=== PATIENT | male | born 1955 | race Hispanic/Latino ===

== ENCOUNTER 2018-03-13 19:28 | Inpatient (IN) | payer OTHER ==
[2018-03-13 20:14] LABS: BASO # 0.1 K/uL (0.0-0.2); BASO % 1.4 % (0.0-2.0); EOS # 0.5 K/uL (0.0-0.7); EOS % 6.8 % (0.0-4.0); HEMOGLOBIN 15.1 g/dL (12.0-18.0); LYMPH # 2.4 K/uL (1.0-4.3); LYMPH % 31.2 % (20.0-40.0); MEAN CELL VOLUME 89.2 fl (80.0-94.0); MEAN CORPUSCULAR HEMOGLOBIN 30.3 pg (27.0-31.0); MEAN PLATELET VOLUME 7.9 fl (7.2-11.7); MONO # 0.8 K/uL (0.0-0.8); MONO % 10.9 % (0.0-10.0); NEUT # 3.9 K/uL (1.8-7.0); NEUT % 49.7 % (50.0-75.0); RBC 4.97 Mil/uL (4.40-5.90); RED CELL DISTRIBUTION WIDTH 13.5 % (11.5-14.5); WHITE BLOOD COUNT 7.8 K/uL (4.8-10.8)
[2018-03-13 20:20] LABS: PARTIAL THROMBOPLASTIN TIME 29.5 Seconds (25.6-37.1); PROTHROMBIN TIME 11.4 Seconds (9.8-13.1)
--- NOTE | 2018-03-13 20:20 | ED PDOC ---
HPI: Altered Mental Status Time Seen by Provider: 03/13/18 19:46 Chief Complaint (Nursing): Dizziness/Lightheaded Chief Complaint (Provider): Trouble Reading History Per: Patient History/Exam Limitations: None Onset/Duration Of Symptoms: Hrs (one hour ago) Additional Complaint(s): 62 year old with a past medical history of dyslipidemia presents to the ED complaining he had trouble reading one hour ago prior to arrival. States he went to the store to purchase cat litter and had difficulty reading the word eliminator even though he knew it said eliminator. Subsequently, he felt weak and nauseous. He reported the symptoms to his as well and felt better at home but states he was texting incorrectly. Patient is oriented to person, place , and time currently. His speech is clear and fluent. Denies trouble walking, speaking, or facial droop. PMD: Dr. Gonzales NIHSS Stroke Scale - Date/Time Evaluation Performed Date Performed: 03/13/18 Time Performed: 19:45 When Was NIHSS Performed: Baseline - How Severe is the Stroke Level of Consciousness: 0=Alert LOC to Questions: 0=Both comments correct LOC to commands: 0=Obeys both correctly Best Gaze: 0=Normal Visual: 0=No visual loss Facial: 0=Normal Motor Arm - Left: 0=No drift Motor Arm - Right: 0=No drift Motor Leg - Left: 0=No drift Motor Leg - Right: 0=No drift Limb Ataxia: 0=Absent Sensory: 0=Normal Best Language: 0=No aphasia Dysarthia: 0=Normal articulation Extinction & Inattention (Neglect): 0=Normal, no object Score: 0 Past Medical History Reviewed: Historical Data, Nursing Documentation, Vital Signs Vital Signs: Last Vital Signs Temp 97.8 F 03/13/18 19:32 Pulse 82 03/13/18 19:32 Resp 16 03/13/18 19:32 BP 146/80 03/13/18 19:32 Pulse Ox 95 03/13/18 19:32 - Medical History PMH: Hypercholesterolemia - Surgical History Surgical History: Tonsillectomy - Family History Family History: States: No Known Family Hx - Social History Current smoker - smoking cessation education provided: No Alcohol: None Drugs: Denies - Home Medications Home Medications: Ambulatory Orders Medication Instructions Recorded Atorvastatin [Lipitor] 20 mg PO DAILY 03/13/18 Fexofenadine HCl [Michelle NF] 1 tab PO PRN PRN 03/13/18 Naproxen Sodium [Aleve] 2 tab PO PRN PRN 03/13/18 - Allergies Allergies/Adverse Reactions: Allergies Allergy/AdvReac Type Severity Reaction Status Date / Time No Known Allergies Allergy Verified 03/13/18 19:31 Review of Systems ROS Statement: Except As Marked, All Systems Reviewed And Found Negative Constitutional: Positive for: Weakness, Other (difficulty reading) Gastrointestinal: Positive for: Nausea Physical Exam - Reviewed Nursing Documentation Reviewed: Yes Vital Signs Reviewed: Yes - Physical Exam Appears: Positive for: Well, Non-toxic, No Acute Distress Head Exam: Positive for: ATRAUMATIC, NORMAL INSPECTION, NORMOCEPHALIC Skin: Positive for: Normal Color, Warm, Dry Eye Exam: Positive for: EOMI, Normal appearance, PERRL ENT: Positive for: Normal ENT Inspection Neck: Positive for: Normal, Painless ROM, Supple. Negative for: Decreased ROM Cardiovascular/Chest: Positive for: Regular Rate, Rhythm. Negative for: Murmur Respiratory: Positive for: Normal Breath Sounds. Negative for: Decreased Breath Sounds, Accessory Muscle Use, Respiratory Distress Gastrointestinal/Abdominal: Positive for: Normal Exam, Bowel Sounds, Soft. Negative for: Tenderness, Guarding, Rebound Back: Positive for: Normal Inspection. Negative for: L CVA Tenderness, R CVA Tenderness Extremity: Positive for: Normal ROM. Negative for: Tenderness, Pedal Edema, Deformity Neurologic/Psych: Positive for: Alert, Oriented (x3), Gait (steady). Negative for: Motor/Sensory Deficits, Aphasia, Facial Droop - Laboratory Results Result Diagrams: 03/13/18 20:00 03/13/18 20:00 - ECG O2 Sat by Pulse Oximetry: 95 (RA) Pulse Ox Interpretation: Normal Medical Decision Making Medical Decision Making: Time: 1945 Initial Impression: 62 year old male with an episode of apraxia which has resolved. Initial Plan: --Head w/o Contrast CT --EKG --CMP --Troponin I --CBC w/ Differential --PTT --Prothrombin Time --Chest Portable --Heplock Insertion --Accucheck [Glucose, Blood, POC] --Reevaluation Patient has no stroke like symptoms and his exam was normal. Time: 2050 EXAM: CT Head Without Intravenous Contrast FINDINGS: Brain: No hemorrhage. No significant white matter disease. No edema. Ventricles: No hydrocephalus. Bones: Skull is intact. Sinuses: No acute sinusitis. Mastoid air cells: No mastoid effusion. IMPRESSION: No CT evidence of acute intracranial abnormality Time: [address] Bolivar regrading the patient's presentation who recommended CT of brain and neck angio and advised patient admitted for TIA. Patient asymptomatic in ED and Aspirin ordered. Time: 22:48 CT Angio Head with IV Contrast FINDINGS: Right internal carotid artery: No acute findings. Intracranial segment is patent with no significant stenosis. No aneurysm. Right anterior cerebral artery: Unremarkable. No occlusion or significant stenosis. No aneurysm. Right middle cerebral artery: Unremarkable. No occlusion or significant stenosis. No aneurysm. Right posterior cerebral artery: Unremarkable. No occlusion or significant stenosis. No aneurysm. Right vertebral artery: Unremarkable as visualized. Left internal carotid artery: No acute findings. Intracranial segment is patent with no significant stenosis. No aneurysm. Left anterior cerebral artery: Unremarkable. No occlusion or significant stenosis. No aneurysm. Left middle cerebral artery: Unremarkable. No occlusion or significant stenosis. No aneurysm. Left posterior cerebral artery: Unremarkable. No occlusion or significant stenosis. No aneurysm. Left vertebral artery: Unremarkable as visualized. Basilar artery: Unremarkable. No occlusion or significant stenosis. No aneurysm. IMPRESSION: Unremarkable head CTA. Time: 22:48 CT Angio Neck with IV Contrast FINDINGS: VASCULATURE: Right common carotid artery: Unremarkable. No significant stenosis. No dissection or occlusion. Right internal carotid artery: Minimal atherosclerotic calcification without significant stenosis. Extracranial segment is patent with no significant stenosis. No dissection or occlusion. Right external carotid artery: Unremarkable. No occlusion. Right vertebral artery: Unremarkable. No significant stenosis. No dissection or occlusion. Left common carotid artery: Unremarkable. No significant stenosis. No dissection or occlusion. Left internal carotid artery: Unremarkable. Extracranial segment is patent with no significant stenosis. No dissection or occlusion. Left external carotid artery: Unremarkable. No occlusion. Left vertebral artery: Unremarkable. No significant stenosis. No dissection or occlusion. NECK: Bones/joints: There are moderate to severe degenerative changes in the cervical spine posterior C5- 6 and C6-7. Soft tissues: Unremarkable as visualized. No mass. There is diffuse mucoperiosteal thickening in the right maxillary sinus, consistent with chronic sinusitis. CAROTID STENOSIS REFERENCE USING NASCET CRITERIA: % ICA stenosis = (1 - narrowest ICA diameter/diameter of distal cervical ICA) x 100. Mild - <50% stenosis. Moderate - 50-69% stenosis. Severe - 70-94% stenosis. Near occlusion - 95-99% stenosis. Occluded - 100% stenosis. IMPRESSION: Minimal atherosclerotic calcification in the proximal right internal carotid artery. No significant stenosis. No aneurysm. Chronic sinusitis. Cervical spondylosis. Scribe Attestation: Documented by Chana Marte, acting as a scribe for Alvarado Syed MD Provider Scribe Attestation: All medical record entries made by the Scribe were at my direction and personally dictated by me. I have reviewed the chart and agree that the record accurately reflects my personal performance of the history, physical exam, medical decision making, and the department course for this patient. I have also personally directed, reviewed, and agree with the discharge instructions and disposition. Disposition - Clinical Impression Clinical Impression: Alexia with agraphia - Disposition Disposition Time: 21:25 Condition: FAIR - Pt Status Changed To: Hospital Disposition Of: Inpatient - Admit Certification Admit to Inpatient:: After my assessment, the patient will require hospitalization for at least two midnights. This is because of the severity of symptoms shown, intensity of services needed, and/or the medical risk in this patient being treated as an outpatient. - POA Present On Arrival: None
[2018-03-13 20:25] LABS: ALB/GLOB RATIO 1.4 (1.0-2.1); ALBUMIN 4.3 g/dL (3.5-5.0); ALT/SGPT 69 U/L (21-72); AST/SGOT 40 U/L (17-59); BLOOD UREA NITROGEN 16 mg/dl (9-20); CALCIUM 9.4 mg/dL (8.4-10.2); GFR AFRICAN-AMERICAN > 60; GFR NON-AFRICAN AMERICAN > 60
[2018-03-13] MEDS ORDERED: Alum-Mag Hydrox-Simethicone Susp (30 mL) PO STA (21:29)
[2018-03-13] MEDS ORDERED: Alum-Mag Hydrox-Simethicone Susp (30 mL) ONE (21:31)
[2018-03-13] MEDS ORDERED: Sodium Chloride 0.9% 50 ML IV ONE (21:38)
[2018-03-13] MEDS ORDERED: Iodixanol 320 MG/ML 100 ML BOTTLE IV ONE (21:38)
[2018-03-13 22:24] LABS: HDL CHOLESTEROL 44 MG/DL (30-70)
[2018-03-13 22:35] LABS: LDL CHOLESTEROL 86 mg/dL (0-129)
--- NOTE | 2018-03-13 22:48 | CT ---
EXAM: CT Angiography Head With Intravenous Contrast CLINICAL HISTORY: 62 years old, male; Signs and symptoms; Other: Dizziness; Additional info: R/O CVA TECHNIQUE: Axial computed tomographic angiography images of the head with intravenous contrast using CT angiography protocol. All CT scans at this facility use one or more dose reduction techniques, viz.: automated exposure control; ma/kV adjustment per patient size (including targeted exams where dose is matched to indication; i.e. head); or iterative reconstruction technique. MIP reconstructed images were created and reviewed. Coronal and sagittal reformatted images were created and reviewed. CONTRAST: 90 mL of [id number] administered intravenously. COMPARISON: No relevant prior studies available. FINDINGS: Right internal carotid artery: No acute findings. Intracranial segment is patent with no significant stenosis. No aneurysm. Right anterior cerebral artery: Unremarkable. No occlusion or significant stenosis. No aneurysm. Right middle cerebral artery: Unremarkable. No occlusion or significant stenosis. No aneurysm. Right posterior cerebral artery: Unremarkable. No occlusion or significant stenosis. No aneurysm. Right vertebral artery: Unremarkable as visualized. Left internal carotid artery: No acute findings. Intracranial segment is patent with no significant stenosis. No aneurysm. Left anterior cerebral artery: Unremarkable. No occlusion or significant stenosis. No aneurysm. Left middle cerebral artery: Unremarkable. No occlusion or significant stenosis. No aneurysm. Left posterior cerebral artery: Unremarkable. No occlusion or significant stenosis. No aneurysm. Left vertebral artery: Unremarkable as visualized. Basilar artery: Unremarkable. No occlusion or significant stenosis. No aneurysm. IMPRESSION: Unremarkable head CTA. EXAM: CT Angiography Neck With Intravenous Contrast CLINICAL HISTORY: 62 years old, male; Signs and symptoms; Other: Dizziness; Additional info: R/O CVA TECHNIQUE: Axial computed tomographic angiography images of the neck with intravenous contrast using CT angiography protocol. All CT scans at this facility use one or more dose reduction techniques, viz.: automated exposure control; ma/kV adjustment per patient size (including targeted exams where dose is matched to indication; i.e. head); or iterative reconstruction technique. MIP reconstructed images were created and reviewed. Coronal and sagittal reformatted images were created and reviewed. CONTRAST: 90 mL of [id number] administered intravenously. COMPARISON: CT HEAD 2018-03-13 20:00 FINDINGS: VASCULATURE: Right common carotid artery: Unremarkable. No significant stenosis. No dissection or occlusion. Right internal carotid artery: Minimal atherosclerotic calcification without significant stenosis. Extracranial segment is patent with no significant stenosis. No dissection or occlusion. Right external carotid artery: Unremarkable. No occlusion. Right vertebral artery: Unremarkable. No significant stenosis. No dissection or occlusion. Left common carotid artery: Unremarkable. No significant stenosis. No dissection or occlusion. Left internal carotid artery: Unremarkable. Extracranial segment is patent with no significant stenosis. No dissection or occlusion. Left external carotid artery: Unremarkable. No occlusion. Left vertebral artery: Unremarkable. No significant stenosis. No dissection or occlusion. NECK: Bones/joints: There are moderate to severe degenerative changes in the cervical spine posterior C5-6 and C6-7. Soft tissues: Unremarkable as visualized. No mass. There is diffuse mucoperiosteal thickening in the right maxillary sinus, consistent with chronic sinusitis. CAROTID STENOSIS REFERENCE USING NASCET CRITERIA: % ICA stenosis = (1 - narrowest ICA diameter/diameter of distal cervical ICA) x 100. Mild - <50% stenosis. Moderate - 50-69% stenosis. Severe - 70-94% stenosis. Near occlusion - 95-99% stenosis. Occluded - 100% stenosis. IMPRESSION: Minimal atherosclerotic calcification in the proximal right internal carotid artery. No significant stenosis. No aneurysm. Chronic sinusitis. Cervical spondylosis.
[2018-03-14 07:51] VITALS: RESP 18; TEMP 98.5; O2SAT 97
[2018-03-14] MEDS ORDERED: Enoxaparin 40 mg Syringe SC SCH (09:00)
[2018-03-14] MEDS ORDERED: Pneumococcal 23-Valent Vaccine IM ONE (09:00)
--- NOTE | 2018-03-14 09:07 | CT ---
PROCEDURE: CT HEAD WITHOUT CONTRAST. HISTORY: headache COMPARISON: None available. TECHNIQUE: Axial computed tomography images were obtained through the head/brain without intravenous contrast. Radiation dose: Total exam DLP = 849.53 mGy-cm. This CT exam was performed using one or more of the following dose reduction techniques: Automated exposure control, adjustment of the mA and/or kV according to patient size, and/or use of iterative reconstruction technique. FINDINGS: HEMORRHAGE: No intracranial hemorrhage. BRAIN: No mass effect or edema. No atrophy or chronic microvascular ischemic changes. VENTRICLES: Unremarkable. No hydrocephalus. CALVARIUM: Unremarkable. PARANASAL SINUSES: Unremarkable as visualized. No significant inflammatory changes. MASTOID AIR CELLS: Unremarkable as visualized. No inflammatory changes. OTHER FINDINGS: None. IMPRESSION: Normal CT of the Head. No intracranial mass, hemorrhage or evidence of acute infarct. Preliminary interpretation of this examination was reported by [facility] at 8:51 p.m. on 03/13/2018. There is concurrence of this report with the preliminary interpretation.
--- NOTE | 2018-03-14 09:43 | CP.PCM.CON ---
History of Present Illness - History of Present Illness History of Present Illness: 62 yr old male who has a pmh of blurriness of vision that is being followed by opthalmology, who presents with a spell that occured yesterday. He was at the grocery store when he could not read a portion of a label, with some word finding difficulties. There was no weakness, no ataxia, no loss of vision , no headache, no numbness and tingling, and no prior spells. 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 He came to [facility], and was admitted to be evaluated for possible stroke. PMH/PSH: hyperlipidemia, no htn or dm FH/SH: no tobacco, no etoh. All: nkda. on exam: NOrmal neurological examination. no field cuts, no speech deficits, no weakness , Past Patient History - Past Medical History & Family History Past Medical History?: Yes - Past Social History Alcohol: None Drugs: Denies - CARDIAC Hx Hypercholesterolemia: Yes - PULMONARY Hx Respiratory Disorders: No - NEUROLOGICAL Hx Neurological Disorder: Yes Hx Vertigo: Yes - HEENT Hx HEENT Problems: No - RENAL Hx Chronic Kidney Disease: No - ENDOCRINE/METABOLIC Hx Endocrine Disorders: No - HEMATOLOGICAL/ONCOLOGICAL Hx Blood Disorders: No Hx AIDS: No Hx Human Immunodeficiency Virus (HIV): No - INTEGUMENTARY Hx Dermatological Problems: No - MUSCULOSKELETAL/RHEUMATOLOGICAL Hx Musculoskeletal Disorders: No Hx Falls: Yes - GASTROINTESTINAL Hx Gastrointestinal Disorders: No - GENITOURINARY/GYNECOLOGICAL Hx Genitourinary Disorders: No - PSYCHIATRIC Hx Psychophysiologic Disorder: No Hx Substance Use: No - SURGICAL HISTORY Hx Tonsillectomy: Yes - ANESTHESIA Hx Anesthesia: Yes Hx Anesthesia Reactions: No Hx Malignant Hyperthermia: No Meds Allergies/Adverse Reactions: Allergies Allergy/AdvReac Type Severity Reaction Status Date / Time No Known Allergies Allergy Verified 03/13/18 19:31 - Medications Medications: Current Medications Aspirin (Aspirin) 325 mg PO QAM NAV Atorvastatin Calcium (Lipitor) 20 mg PO DAILY NAV Enoxaparin Sodium (Lovenox) 40 mg SC DAILY NAV PRN Reason: Protocol Results - Vital Signs Recent Vital Signs: Last Vital Signs Temp 98.5 F 03/14/18 07:50 Pulse 71 03/14/18 07:50 Resp 18 03/14/18 07:50 BP 143/73 03/14/18 07:50 Pulse Ox 97 03/14/18 07:50 - Labs Result Diagrams: 03/13/18 20:00 03/13/18 20:00 Labs: Laboratory Results - last 24 hr 03/13/18 03/13/18 03/13/18 20:00 20:00 20:00 WBC 7.8 RBC 4.97 Hgb 15.1 Hct 44.4 MCV 89.2 MCH 30.3 MCHC 34.0 RDW 13.5 Plt Count 314 MPV 7.9 Neut % (Auto) 49.7 L Lymph % (Auto) 31.2 Phelps % (Auto) 10.9 H Eos % (Auto) 6.8 H Baso % (Auto) 1.4 Neut # (Auto) 3.9 Lymph # (Auto) 2.4 Phelps # (Auto) 0.8 Eos # (Auto) 0.5 Baso # (Auto) 0.1 PT 11.4 INR 1.0 APTT 29.5 Sodium 141 Potassium 3.7 Chloride 101 Carbon Dioxide 25 Anion Gap 19 BUN 16 Creatinine 0.9 Est GFR ( Amer) > 60 Est GFR (Non-Af Amer) > 60 POC Glucose (mg/dL) Random Glucose 94 Calcium 9.4 Total Bilirubin 0.6 AST 40 ALT 69 Alkaline Phosphatase 35 L Troponin I < 0.0120 Total Protein 7.4 Albumin 4.3 Globulin 3.1 Albumin/Globulin Ratio 1.4 Triglycerides Cholesterol LDL Cholesterol Direct HDL Cholesterol 03/13/18 03/13/18 20:24 21:39 WBC RBC Hgb Hct MCV MCH MCHC RDW Plt Count MPV Neut % (Auto) Lymph % (Auto) Phelps % (Auto) Eos % (Auto) Baso % (Auto) Neut # (Auto) Lymph # (Auto) Phelps # (Auto) Eos # (Auto) Baso # (Auto) PT INR APTT Sodium Potassium Chloride Carbon Dioxide Anion Gap BUN Creatinine Est GFR ( Amer) Est GFR (Non-Af Amer) POC Glucose (mg/dL) 86 Random Glucose Calcium Total Bilirubin AST ALT Alkaline Phosphatase Troponin I Total Protein Albumin Globulin Albumin/Globulin Ratio Triglycerides 161 H Cholesterol 162 LDL Cholesterol Direct 86 HDL Cholesterol 44 - Imaging and Cardiology CT scan - head Status: Image reviewed by me, Report reviewed by me (ct head is normal, no hemorrhages. ) Assessment & Plan - Assessment and Plan (Free Text) Assessment: 62 yr old male with possible TIA in the parietal region, but most likely to be related to intrinsic eye defect. He has no risk factors except for age, and can undergo stroke workup on an outpatient basis. PLan: 1. ECHO outpatient 2.MRI Brain outpatient 3. start aspirin 325 mg po daily 4. FOllow up with me in one month Thank you, DR. east
--- NOTE | 2018-03-14 10:37 | CARD ---
APPROVED REPORT EKG Measurement Heart [id number] ND [id number] <Conclusion> Sinus rhythm with 1st degree AV block Nonspecific intraventricular block Abnormal ECG
[2018-03-14] MEDS ORDERED: Alum-Mag Hydrox-Simethicone Susp (30 mL) PO ONE (12:05)
[2018-03-14 12:06] VITALS: BP 143/81; PULSE 65
--- NOTE | 2018-03-14 13:39 | CP.PCM.HP ---
History of Present Illness - History of Present Illness History of Present Illness: CC: Unable to read and Type History of Present Illness: A 62 year old with a past medical history of dyslipidemia presents to the ED complaining he had trouble reading one hour ago prior to arrival. States he went to the store to purchase cat litter and had difficulty reading the word eliminator even though he knew it said eliminator. Subsequently, he felt weak and nauseous. He reported the symptoms to his as well and felt better at home but states he was texting incorrectly. Patient is oriented to person, place , and time currently. His speech is clear and fluent. Denies trouble walking, speaking, or facial droop. Present on Admission - Present on Admission Any Indicators Present on Admission: No Review of Systems - Review of Systems All systems: reviewed and no additional remarkable complaints except Past Patient History - Infectious Disease Hx of Infectious Diseases: None - Past Medical History & Family History Past Medical History?: Yes Past Family History: Reviewed and not pertinent - Past Social History Smoking Status: Never Smoked Alcohol: None Drugs: Denies - CARDIAC Hx Hypercholesterolemia: Yes - PULMONARY Hx Respiratory Disorders: No - NEUROLOGICAL Hx Neurological Disorder: Yes Hx Vertigo: Yes - HEENT Hx HEENT Problems: No - RENAL Hx Chronic Kidney Disease: No - ENDOCRINE/METABOLIC Hx Endocrine Disorders: No - HEMATOLOGICAL/ONCOLOGICAL Hx Blood Disorders: No Hx AIDS: No Hx Human Immunodeficiency Virus (HIV): No - INTEGUMENTARY Hx Dermatological Problems: No - MUSCULOSKELETAL/RHEUMATOLOGICAL Hx Musculoskeletal Disorders: No Hx Falls: Yes - GASTROINTESTINAL Hx Gastrointestinal Disorders: No - GENITOURINARY/GYNECOLOGICAL Hx Genitourinary Disorders: No - PSYCHIATRIC Hx Psychophysiologic Disorder: No Hx Substance Use: No - SURGICAL HISTORY Hx Tonsillectomy: Yes - ANESTHESIA Hx Anesthesia: Yes Hx Anesthesia Reactions: No Hx Malignant Hyperthermia: No Meds Home Medications: Home Medication List Medication Instructions Recorded Confirmed Type Aspirin 325 mg PO QAM #30 tab 03/14/18 Rx Allergies/Adverse Reactions: Allergies Allergy/AdvReac Type Severity Reaction Status Date / Time No Known Allergies Allergy Verified 03/13/18 19:31 Physical Exam - Constitutional Appears: Well, No Acute Distress - Head Exam Head Exam: ATRAUMATIC, NORMAL INSPECTION, NORMOCEPHALIC - Eye Exam Eye Exam: EOMI, Normal appearance, PERRL Pupil Exam: NORMAL ACCOMODATION, PERRL - ENT Exam ENT Exam: Mucous Membranes Moist, Normal Exam - Neck Exam Neck exam: Positive for: Full Rom, Normal Inspection - Respiratory Exam Respiratory Exam: Clear to Auscultation Bilateral, NORMAL BREATHING PATTERN - Cardiovascular Exam Cardiovascular Exam: REGULAR RHYTHM, +S1, +S2 - GI/Abdominal Exam GI & Abdominal Exam: Normal Bowel Sounds, Soft. absent: Tenderness - Extremities Exam Extremities exam: Positive for: full ROM, normal capillary refill, normal inspection - Back Exam Back exam: NORMAL INSPECTION - Neurological Exam Neurological exam: Alert, CN II-XII Intact, Normal Gait, Oriented x3, Reflexes Normal - Psychiatric Exam Psychiatric exam: Normal Affect, Normal Mood - Skin Skin Exam: Dry, Intact, Normal Color, Warm Results - Vital Signs Recent Vital Signs: Last Vital Signs Temp 98.5 F 03/14/18 12:06 Pulse 65 03/14/18 12:06 Resp 18 03/14/18 12:06 BP 143/81 03/14/18 12:06 Pulse Ox 97 03/14/18 12:06 - Labs Result Diagrams: 03/13/18 20:00 03/13/18 20:00 Labs: Laboratory Results - last 24 hr 03/13/18 03/13/18 03/13/18 20:00 20:00 20:00 WBC 7.8 RBC 4.97 Hgb 15.1 Hct 44.4 MCV 89.2 MCH 30.3 MCHC 34.0 RDW 13.5 Plt Count 314 MPV 7.9 Neut % (Auto) 49.7 L Lymph % (Auto) 31.2 [place] % (Auto) 10.9 H Eos % (Auto) 6.8 H Baso % (Auto) 1.4 Neut # (Auto) 3.9 Lymph # (Auto) 2.4 [place] # (Auto) 0.8 Eos # (Auto) 0.5 Baso # (Auto) 0.1 PT 11.4 INR 1.0 APTT 29.5 Sodium 141 Potassium 3.7 Chloride 101 Carbon Dioxide 25 Anion Gap 19 BUN 16 Creatinine 0.9 Est GFR ( Amer) > 60 Est GFR (Non-Af Amer) > 60 POC Glucose (mg/dL) Random Glucose 94 Calcium 9.4 Total Bilirubin 0.6 AST 40 ALT 69 Alkaline Phosphatase 35 L Troponin I < 0.0120 Total Protein 7.4 Albumin 4.3 Globulin 3.1 Albumin/Globulin Ratio 1.4 Triglycerides Cholesterol LDL Cholesterol Direct HDL Cholesterol 03/13/18 03/13/18 20:24 21:39 WBC RBC Hgb Hct MCV MCH MCHC RDW Plt Count MPV Neut % (Auto) Lymph % (Auto) [place] % (Auto) Eos % (Auto) Baso % (Auto) Neut # (Auto) Lymph # (Auto) [place] # (Auto) Eos # (Auto) Baso # (Auto) PT INR APTT Sodium Potassium Chloride Carbon Dioxide Anion Gap BUN Creatinine Est GFR ( Amer) Est GFR (Non-Af Amer) POC Glucose (mg/dL) 86 Random Glucose Calcium Total Bilirubin AST ALT Alkaline Phosphatase Troponin I Total Protein Albumin Globulin Albumin/Globulin Ratio Triglycerides 161 H Cholesterol 162 LDL Cholesterol Direct 86 HDL Cholesterol 44 - EKG Data EKG comments: NSR 1st degree AV block. Incomplete Interventricular Block - Imaging and Cardiology CT scan - head Status: Report reviewed by me Additional comment: CT HEAD WITHOUT CONTRAST. HISTORY: headache COMPARISON: None available. TECHNIQUE: Axial computed tomography images were obtained through the head/brain without intravenous contrast. Radiation dose: Total exam DLP = 849.53 mGy-cm. This CT exam was performed using one or more of the following dose reduction techniques: Automated exposure control, adjustment of the mA and/or kV according to patient size, and/or use of iterative reconstruction technique. FINDINGS: HEMORRHAGE: No intracranial hemorrhage. BRAIN: No mass effect or edema. No atrophy or chronic microvascular ischemic changes. VENTRICLES: Unremarkable. No hydrocephalus. CALVARIUM: Unremarkable. PARANASAL SINUSES: Unremarkable as visualized. No significant inflammatory changes. MASTOID AIR CELLS: Unremarkable as visualized. No inflammatory changes. OTHER FINDINGS: None. IMPRESSION: Normal CT of the Head. No intracranial mass, hemorrhage or evidence of acute infarct. CT Head/Neck Angiogram: Additional comment: CT Scan CTA HEAD NECK BUNDLE Exam Date: 03/13/18 This imaging exam was performed at [facility] EXAM: CT Angiography Head With Intravenous Contrast CLINICAL HISTORY: 62 years old, male; Signs and symptoms; Other: Dizziness; Additional info: R/O CVA TECHNIQUE: Axial computed tomographic angiography images of the head with intravenous contrast using CT angiography protocol. All CT scans at this facility use one or more dose reduction techniques, viz.: automated exposure control; ma/kV adjustment per patient size (including targeted exams where dose is matched to indication; i.e. head); or iterative reconstruction technique. MIP reconstructed images were created and reviewed. Coronal and sagittal reformatted images were created and reviewed. CONTRAST: 90 mL of [id number] administered intravenously. COMPARISON: No relevant prior studies available. FINDINGS: Right internal carotid artery: No acute findings. Intracranial segment is patent with no significant stenosis. No aneurysm. Right anterior cerebral artery: Unremarkable. No occlusion or significant stenosis. No aneurysm. Right middle cerebral artery: Unremarkable. No occlusion or significant stenosis. No aneurysm. Right posterior cerebral artery: Unremarkable. No occlusion or significant stenosis. No aneurysm. Right vertebral artery: Unremarkable as visualized. Left internal carotid artery: No acute findings. Intracranial segment is patent with no significant stenosis. No aneurysm. Left anterior cerebral artery: Unremarkable. No occlusion or significant stenosis. No aneurysm. Left middle cerebral artery: Unremarkable. No occlusion or significant stenosis. No aneurysm. Left posterior cerebral artery: Unremarkable. No occlusion or significant stenosis. No aneurysm. Left vertebral artery: Unremarkable as visualized. Basilar artery: Unremarkable. No occlusion or significant stenosis. No aneurysm. IMPRESSION: Unremarkable head CTA. EXAM: CT Angiography Neck With Intravenous Contrast CLINICAL HISTORY: 62 years old, male; Signs and symptoms; Other: Dizziness; Additional info: R/O CVA TECHNIQUE: Axial computed tomographic angiography images of the neck with intravenous contrast using CT angiography protocol. All CT scans at this facility use one or more dose reduction techniques, viz.: automated exposure control; ma/kV adjustment per patient size (including targeted exams where dose is matched to indication; i.e. head); or iterative reconstruction technique. MIP reconstructed images were created and reviewed. Coronal and sagittal reformatted images were created and reviewed. CONTRAST: 90 mL of [id number] administered intravenously. COMPARISON: CT HEAD 2018-03-13 20:00 FINDINGS: VASCULATURE: Right common carotid artery: Unremarkable. No significant stenosis. No dissection or occlusion. Right internal carotid artery: Minimal atherosclerotic calcification without significant stenosis. Extracranial segment is patent with no significant stenosis. No dissection or occlusion. Right external carotid artery: Unremarkable. No occlusion. Right vertebral artery: Unremarkable. No significant stenosis. No dissection or occlusion. Left common carotid artery: Unremarkable. No significant stenosis. No dissection or occlusion. Left internal carotid artery: Unremarkable. Extracranial segment is patent with no significant stenosis. No dissection or occlusion. Left external carotid artery: Unremarkable. No occlusion. Left vertebral artery: Unremarkable. No significant stenosis. No dissection or occlusion. NECK: Bones/joints: There are moderate to severe degenerative changes in the cervical spine posterior C5-6 and C6-7. Soft tissues: Unremarkable as visualized. No mass. There is diffuse mucoperiosteal thickening in the right maxillary sinus, consistent with chronic sinusitis. CAROTID STENOSIS REFERENCE USING NASCET CRITERIA: % ICA stenosis = (1 - narrowest ICA diameter/diameter of distal cervical ICA ) x 100. Mild - <50% stenosis. Moderate - 50-69% stenosis. Severe - 70-94% stenosis. Near occlusion - 95-99% stenosis. Occluded - 100% stenosis. IMPRESSION: Minimal atherosclerotic calcification in the proximal right internal carotid artery. No significant stenosis. No aneurysm. Chronic sinusitis. Cervical spondylosis. Assessment & Plan (1) Alexia with agraphia Assessment and Plan: TIA ASA 325mg DAily Neurocheck MRI and Echocardiogram Carotid Dopplers Neurolgy Consulted Status: Acute (2) Dyslipidemia Status: Acute
--- NOTE | 2018-03-14 13:57 | RAD ---
HISTORY: admit COMPARISON: No prior. FINDINGS: LUNGS: No active pulmonary disease. PLEURA: No significant pleural effusion identified, no pneumothorax apparent. CARDIOVASCULAR: Normal. OSSEOUS STRUCTURES: No significant abnormalities. VISUALIZED UPPER ABDOMEN: Normal. OTHER FINDINGS: None. IMPRESSION: No active disease.
--- NOTE | 2018-03-14 19:09 | CP.PCM.DIS ---
Provider - Provider Date of Admission: 03/13/18 21:27 Attending physician: Tomer Branch MD Time Spent in preparation of Discharge (in minutes): 20 Diagnosis - Discharge Diagnosis (1) Alexia with agraphia Status: Acute (2) Dyslipidemia Status: Acute Hospital Course - Lab Results Lab Results: Most Recent Lab Values WBC 7.8 K/uL (4.8-10.8) 03/13/18 20:00 RBC 4.97 Mil/uL (4.40-5.90) 03/13/18 20:00 Hgb 15.1 g/dL (12.0-18.0) 03/13/18 20:00 Hct 44.4 % (35.0-51.0) 03/13/18 20:00 MCV 89.2 fl (80.0-94.0) 03/13/18 20:00 MCH 30.3 pg (27.0-31.0) 03/13/18 20:00 MCHC 34.0 g/dL (33.0-37.0) 03/13/18 20:00 RDW 13.5 % (11.5-14.5) 03/13/18 20:00 Plt Count 314 K/uL (130-400) 03/13/18 20:00 MPV 7.9 fl (7.2-11.7) 03/13/18 20:00 Neut % (Auto) 49.7 % (50.0-75.0) L 03/13/18 20:00 Lymph % (Auto) 31.2 % (20.0-40.0) 03/13/18 20:00 [place] % (Auto) 10.9 % (0.0-10.0) H 03/13/18 20:00 Eos % (Auto) 6.8 % (0.0-4.0) H 03/13/18 20:00 Baso % (Auto) 1.4 % (0.0-2.0) 03/13/18 20:00 Neut # (Auto) 3.9 K/uL (1.8-7.0) 03/13/18 20:00 Lymph # (Auto) 2.4 K/uL (1.0-4.3) 03/13/18 20:00 [place] # (Auto) 0.8 K/uL (0.0-0.8) 03/13/18 20:00 Eos # (Auto) 0.5 K/uL (0.0-0.7) 03/13/18 20:00 Baso # (Auto) 0.1 K/uL (0.0-0.2) 03/13/18 20:00 PT 11.4 Seconds (9.8-13.1) 03/13/18 20:00 INR 1.0 (0.9-1.2) 03/13/18 20:00 APTT 29.5 Seconds (25.6-37.1) 03/13/18 20:00 Sodium 141 mmol/l (132-148) 03/13/18 20:00 Potassium 3.7 MMOL/L (3.6-5.0) 03/13/18 20:00 Chloride 101 mmol/L (98-107) 03/13/18 20:00 Carbon Dioxide 25 mmol/L (22-30) 03/13/18 20:00 Anion Gap 19 (10-20) 03/13/18 20:00 BUN 16 mg/dl (9-20) 03/13/18 20:00 Creatinine 0.9 mg/dl (0.8-1.5) 03/13/18 20:00 Est GFR ( Amer) > 60 03/13/18 20:00 Est GFR (Non-Af Amer) > 60 03/13/18 20:00 POC Glucose (mg/dL) 86 mg/dL (65-110) 03/13/18 20:24 Random Glucose 94 mg/dL (75-110) 03/13/18 20:00 Calcium 9.4 mg/dL (8.4-10.2) 03/13/18 20:00 Total Bilirubin 0.6 mg/dl (0.2-1.3) 03/13/18 20:00 AST 40 U/L (17-59) 03/13/18 20:00 ALT 69 U/L (21-72) 03/13/18 20:00 Alkaline Phosphatase 35 U/L (38-126) L 03/13/18 20:00 Troponin I < 0.0120 ng/mL (0.00-0.120) 03/13/18 20:00 Total Protein 7.4 G/DL (6.3-8.2) 03/13/18 20:00 Albumin 4.3 g/dL (3.5-5.0) 03/13/18 20:00 Globulin 3.1 gm/dL (2.2-3.9) 03/13/18 20:00 Albumin/Globulin Ratio 1.4 (1.0-2.1) 03/13/18 20:00 Triglycerides 161 mg/DL (0-149) H 03/13/18 21:39 Cholesterol 162 mg/dL (0-199) 03/13/18 21:39 LDL Cholesterol Direct 86 mg/dL (0-129) 03/13/18 21:39 HDL Cholesterol 44 MG/DL (30-70) 03/13/18 21:39 - Hospital Course Hospital Course: Patient would like to go home and complete the Testing as an out paient. Neurology cleared the patient for D/c and will be discharged on ASA 325mg and Lipitor 20mg daily, and TTE, Doppler and MRI Brain w/o Contrast. Discharge Exam - Head Exam Head Exam: ATRAUMATIC, NORMAL INSPECTION, NORMOCEPHALIC Discharge Plan - Discharge Medications Prescriptions: Aspirin 325 mg PO QAM #30 tab - Follow Up Plan Condition: GOOD Disposition: HOME/ ROUTINE Instructions: Stroke (DC), Quitting Smoking Additional Instructions: follow up with primary md within 1 week. follow up for required tests. for any continuing issues or symptoms return to emergency room. call 911 for any stroke symptoms.
--- NOTE | 2018-03-16 08:50 | PQF GENQUE ---
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 After study was TIA ruled in or out? This form is a permanent part of the medical record Clarification of your documentation is requested to better reflect the severity of illness and intensity of treatment of your patient. Indicators present [] Specify: [] [] Specify: [] [] Specify: [] [] Specify: [] Location in the medical record that reflects the above clinical findings: [] Treatment Provided: [] PHYSICIAN'S RESPONSE Based on your medical judgment of the clinical indicators outlined above please clarify the following: [] Practitioner response [] If unable to determine, please check the box, sign and date. Present On Admission (POA) Indicator: [] Present at the time of admission [] Not present at the time of admission [] Clinically Undetermined In responding to this query, please exercise your independent professional judgment. The fact that a question is asked does not imply that any particular answer is desired or expected. Thank you for your clarification on this documentation. If you have any questions please call:[ ] * Thank you, [ ]Awilda Martines rhythmic gymnastics coach [place]
== END 2018-03-14 14:45 | disposition home or self-care (01) | DRG 69 ==
LOC: H.ER 19:28 → H.ERHOLD 21:27 → H.TEL 23:06
PROVIDERS: ADMIT Internal Medicine; ATTEND Internal Medicine
PROC: 3E0234Z Introduction of Serum, Toxoid and Vaccine into Muscle, Percutaneous Approach (ICD-10-PCS; principal; 2018-03-14)
DX: G45.9 Transient cerebral ischemic attack, unspecified (principal); R48.0 Dyslexia and alexia; E78.5 Hyperlipidemia, unspecified; E78.00 Pure hypercholesterolemia, unspecified; J32.9 Chronic sinusitis, unspecified; M47.812 Spondylosis without myelopathy or radiculopathy, cervical region; Z23 Encounter for immunization